=== PATIENT | male | born 1960 | race Caucasian/White ===

== ENCOUNTER 2017-07-05 00:36 | Emergency (ER) | payer OTHER ==
[~2017-07-05] VITALS: Ht 179.1 cm; Wt 68.9 kg
[~2017-07-05 00:36] MED LIST: DILT120C62 PO; FURO-150 PO; NO HOME MEDS
[2017-07-05 01:11] LABS: BASOPHILS # (AUTO) 0.1 X10'3 (0-0.2); BASOPHILS % (AUTO) 1.6 % (0-1); EOSINOPHILS # (AUTO) 0.1 X10'3 (0-0.9); EOSINOPHILS % (AUTO) 0.9 % (0-6); HEMATOCRIT 47.4 % (42.0-52.0); HEMOGLOBIN 16.6 g/dl (14.0-17.9); LYMPHOCYTES # (AUTO) 1.6 X10'3 (1.1-4.8); LYMPHOCYTES % (AUTO) 17.7 % (21-51); MEAN CORPUSCULAR HEMOGLOBIN 32.3 PG (27.0-31.0); MEAN CORPUSCULAR HGB CONC 35.1 % (33.0-36.5); MEAN PLATELET VOLUME 10.1 FL (7.4-10.4); MONOCYTES # (AUTO) 0.4 X10'3 (0-0.9); MONOCYTES % (AUTO) 4.9 % (2-12); NEUTROPHILS # (AUTO) 6.7 X10'3 (1.8-7.7); NEUTROPHILS % (AUTO) 74.9 % (42-75); PLATELET COUNT 134 X10'3 (140-440); RED BLOOD COUNT 5.15 X10'6 (4.70-6.10); RED CELL DISTRIBUTION WIDTH 13.1 % (11.5-14.5); WHITE BLOOD COUNT 8.9 X10'3 (4.5-11.0)
[2017-07-05] MEDS ORDERED: diltiazem 5mg/ml 5ml inj. IV ONE (01:20)
[2017-07-05 01:22] LABS: INR 1.1 INR; PARTIAL THROMBOPLASTIN TIME 28 SECONDS (22-32); PROTHROMBIN TIME 11.3 SECONDS (9.0-12.0)
[2017-07-05 01:25] LABS: ALANINE AMINOTRANSFERASE 28 U/L (12-78); ALBUMIN 4.3 G/DL (3.4-5.0); ALBUMIN/GLOBULIN RATIO 1.2 (1.1-1.5); ALKALINE PHOSPHATASE 99 IU/L (46-116); ANION GAP 11 (8-16); ASPARTATE AMINO TRANSFERASE 24 U/L (10-37); BILIRUBIN,TOTAL 1.5 MG/DL (0.1-1.0); BLOOD UREA NITROGEN 15 MG/DL (7-18); CALCIUM 9.7 MG/DL (8.5-10.1); CHLORIDE 101 MMOL/L (99-107); GLUCOSE 115 MG/DL (70-104); POTASSIUM 4.5 MMOL/L (3.5-5.1); SODIUM 138 MMOL/L (135-145); TOTAL CARBON DIOXIDE 26.2 MMOL/L (24-32); TOTAL PROTEIN 7.9 G/DL (6.4-8.2); eGFR 77 ML/MIN
[2017-07-05 02:59] VITALS: BP 146/96
== END 2017-07-05 03:02 | disposition home or self-care (01) ==
LOC: ER 00:36
DX: I48.91 Unspecified atrial fibrillation (principal); R06.02 Shortness of breath; F15.10 Other stimulant abuse, uncomplicated; F17.200 Nicotine dependence, unspecified, uncomplicated; Z86.79 Personal history of other diseases of the circulatory system; Z79.899 Other long term (current) drug therapy; Z90.49 Acquired absence of other specified parts of digestive tract; Z60.2 Problems related to living alone
CPT/HCPCS: 36415; 71045; 80053; 84484; 85025; 85610; 85730; 93005; 96374; 99285; J3490

== ENCOUNTER 2018-05-08 13:29 | Day surgery (SDC) | payer OTHER ==
[2018-04-29 13:00] LABS: BASOPHILS # (AUTO) 0.1 X10'3 (0-0.2); BASOPHILS % (AUTO) 0.6 % (0-1); EOSINOPHILS # (AUTO) 0.2 X10'3 (0-0.9); EOSINOPHILS % (AUTO) 2.2 % (0-6); HEMATOCRIT 51.1 % (42.0-52.0); HEMOGLOBIN 17.4 g/dl (14.0-17.9); LYMPHOCYTES % (AUTO) 22.4 % (21-51); MEAN CORPUSCULAR HEMOGLOBIN 32.3 PG (27.0-31.0); MEAN CORPUSCULAR HGB CONC 34.1 % (33.0-36.5); MEAN CORPUSCULAR VOLUME 94.6 FL (78-98); MEAN PLATELET VOLUME 9.8 FL (7.4-10.4); MONOCYTES # (AUTO) 0.4 X10'3 (0-0.9); MONOCYTES % (AUTO) 4.7 % (2-12); NEUTROPHILS # (AUTO) 6.2 X10'3 (1.8-7.7); NEUTROPHILS % (AUTO) 70.1 % (42-75); PLATELET COUNT 170 X10'3 (140-440); RED CELL DISTRIBUTION WIDTH 13.8 % (11.5-14.5); WHITE BLOOD COUNT 8.9 X10'3 (4.5-11.0)
[2018-04-29 13:13] LABS: ALBUMIN 3.9 G/DL (3.4-5.0); ANION GAP 7 (8-16); BLOOD UREA NITROGEN 10 MG/DL (7-18); CALCIUM 9.5 MG/DL (8.5-10.1); CHLORIDE 101 MMOL/L (99-107); CREATININE 1.11 MG/DL (0.60-1.10); GLUCOSE 112 MG/DL (70-104); POTASSIUM 4.3 MMOL/L (3.5-5.1); SODIUM 137 MMOL/L (135-145); TOTAL CARBON DIOXIDE 28.8 MMOL/L (24-32); eGFR 68 ML/MIN
[2018-04-29 13:23] LABS: INR 1.3 INR; PARTIAL THROMBOPLASTIN TIME 56 SECONDS (22-32); PROTHROMBIN TIME 13.3 SECONDS (9.0-12.0)
[2018-05-08] VITALS (12 sets, daily range): BP systolic 106–125; BP diastolic 53–88
[~2018-05-08] VITALS: Ht 177.8 cm; Wt 67.7 kg
[2018-05-08] MEDS ORDERED: fentaNYL/PF 50MCG/1 ML 2ML syringe IV ONE (14:10)
[2018-05-08] MEDS ORDERED: normal saline 1000ml 1,000 ML IV SCH (14:10)
[2018-05-08] MEDS ORDERED: MIDAZolam 5mg/ml 2ml vial IV ONE (14:10)
[2018-05-08] MEDS ORDERED: ACET-2119 PO (14:25)
[2018-05-08] MEDS ORDERED: POTA-82 PO (14:25)
[2018-05-08] MEDS ORDERED: DABI150C PO (14:25)
[2018-05-08] MEDS ORDERED: FURO-150 PO (14:35)
[2018-05-08] MEDS ORDERED: DILT240T12 PO (14:35)
== END 2018-05-08 19:10 | disposition home or self-care (01) ==
LOC: SSTAY O 13:29
PROVIDERS: ATTEND Internal Medicine Interventional Cardiology
DX: I48.1 Persistent atrial fibrillation (principal); I34.0 Nonrheumatic mitral (valve) insufficiency; F17.210 Nicotine dependence, cigarettes, uncomplicated; I11.0 Hypertensive heart disease with heart failure; I50.22 Chronic systolic (congestive) heart failure; G62.89 Other specified polyneuropathies; Z79.891 Long term (current) use of opiate analgesic; Z86.79 Personal history of other diseases of the circulatory system; Z86.69 Personal history of other diseases of the nervous system and sense organs; Z90.49 Acquired absence of other specified parts of digestive tract; Z87.2 Personal history of diseases of the skin and subcutaneous tissue; Z79.899 Other long term (current) drug therapy; Z80.9 Family history of malignant neoplasm, unspecified
CPT/HCPCS: 36415; 80048; 85025; 85610; 85730; 92960; 93312; J2250; J3010; J7030; 93005

== ENCOUNTER 2019-04-30 12:44 | Emergency (ER) | payer OTHER ==
[~2019-04-30] VITALS: Ht 179.1 cm; Wt 64.6 kg
[~2019-04-30 12:44] MED LIST changes: +ACET-2119 PO; +DABI150C PO; -DILT120C62 PO; +DILT240T12 PO; -NO HOME MEDS; +POTA-82 PO
[2019-04-30 13:11] LABS: BASOPHILS # (AUTO) 0.1 X10'3 (0-0.2); BASOPHILS % (AUTO) 0.5 % (0-1); EOSINOPHILS % (AUTO) 0.2 % (0-6); HEMATOCRIT 51.4 % (42.0-52.0); HEMOGLOBIN 17.8 g/dl (14.0-17.9); LYMPHOCYTES # (AUTO) 1.9 X10'3 (1.1-4.8); LYMPHOCYTES % (AUTO) 12.8 % (21-51); MEAN CORPUSCULAR HEMOGLOBIN 32.1 PG (27.0-31.0); MEAN CORPUSCULAR HGB CONC 34.7 g/dL (33.0-36.5); MEAN CORPUSCULAR VOLUME 92.6 FL (78-98); MEAN PLATELET VOLUME 10.1 FL (7.4-10.4); MONOCYTES # (AUTO) 0.8 X10'3 (0-0.9); MONOCYTES % (AUTO) 5.7 % (2-12); NEUTROPHILS # (AUTO) 11.8 X10'3 (1.8-7.7); NEUTROPHILS % (AUTO) 80.8 % (42-75); PLATELET COUNT 202 X10'3 (140-440); RED BLOOD COUNT 5.55 X10'6 (4.70-6.10); RED CELL DISTRIBUTION WIDTH 13.6 % (11.5-14.5); WHITE BLOOD COUNT 14.6 X10'3 (4.5-11.0)
[2019-04-30 13:30] LABS: ALANINE AMINOTRANSFERASE 17 U/L (12-78); ALBUMIN 3.9 G/DL (3.4-5.0); ANION GAP 12 (8-16); ASPARTATE AMINO TRANSFERASE 20 U/L (10-37); BILIRUBIN,TOTAL 0.7 MG/DL (0.1-1.0); BLOOD UREA NITROGEN 14 MG/DL (7-18); CALCIUM 9.2 MG/DL (8.5-10.1); CHLORIDE 103 MMOL/L (99-107); CREATININE 1.17 MG/DL (0.60-1.10); GLUCOSE 122 MG/DL (70-104); POTASSIUM 4.4 MMOL/L (3.5-5.1); SODIUM 140 MMOL/L (135-145); TOTAL PROTEIN 7.8 G/DL (6.4-8.2); eGFR 64 ML/MIN
[2019-04-30] MEDS ORDERED: normal saline 1000ml 1,000 ML IV ONE (13:30)
[2019-04-30] MEDS ORDERED: diltiazem 5mg/ml 5ml inj. IV ONE (13:30)
[2019-04-30 13:31] LABS: ALKALINE PHOSPHATASE 105 IU/L (46-116)
[2019-04-30 13:33] LABS: AMYLASE 38 U/L (25-115); LIPASE 63 U/L (73-393); MAGNESIUM 1.8 MG/DL (1.5-2.4)
[2019-04-30] MEDS ORDERED: morphine 4 MG/ML inj SYRINge IV ONE (13:35)
[2019-04-30] MEDS ORDERED: ondansetron/PF 4mg/2ml inj IV ONE (13:35)
--- NOTE | 2019-04-30 14:32 | NUR ---
To CT scan.
[2019-04-30 14:47] LABS: CLARITY,URINE CLEAR (Clear); GLUCOSE, URINE NEGATIVE (Neg); KETONES,URINE 40 mg/dl (Neg); LEUKOCYTE ESTERASE ,URINE NEGATIVE (Neg); NITRITES, URINE NEGATIVE (Neg); OCCULT BLOOD,URINE TRACE-LYSED (Neg); PH,URINE 5.5 (4.8-8.0); PROTEIN,URINE 30 mg/dl (Neg); UROBILINOGEN,URINE 0.2 E.U/dL (0.2-1.0)
[2019-04-30 14:53] LABS: URINE AMPHETAMINE SCREEN NEGATIVE (Neg); URINE BARBITUATE SCREEN NEGATIVE (Neg); URINE BENZODIAZEPINES SCREEN NEGATIVE (Neg); URINE CANNABINOID SCREEN POSITIVE (Neg); URINE COCAINE SCREEN NEGATIVE (Neg); URINE METHADONE SCREEN NEGATIVE (Neg); URINE OPIATE SCREEN POSITIVE (Neg); URINE PHENCYCLIDINE SCREEN NEGATIVE (Neg)
--- NOTE | 2019-04-30 14:55 | NUR ---
BACK FROM CT
[2019-04-30 15:07] LABS: UA COLLECTION TYPE VOIDED
[2019-04-30 15:12] LABS: COLOR,URINE DARK YELLOW (Yellow)
[2019-04-30 15:20] LABS: MUCUS STRANDS FEW /LPF (Neg); SQUAMOUS EPITHELIAL CELL,UR FEW /LPF (FEW)
[2019-04-30 15:26] LABS: WBC,URINE 0-4 /HPF (0-4)
[2019-04-30 15:28] LABS: BACTERIA,URINE NONE SEEN /HPF (Neg)
[2019-04-30 15:30] LABS: RBC,URINE NONE SEEN /HPF (0-2)
[2019-04-30] MEDS ORDERED: PANT-47 PO (16:32)
[2019-04-30 17:05] VITALS: BP 155/92
== END 2019-04-30 17:12 | disposition home or self-care (01) ==
LOC: ER 12:45
DX: R10.13 Epigastric pain (principal); F12.90 Cannabis use, unspecified, uncomplicated; I48.91 Unspecified atrial fibrillation; F15.90 Other stimulant use, unspecified, uncomplicated; Z90.49 Acquired absence of other specified parts of digestive tract; Z60.2 Problems related to living alone; Z79.899 Other long term (current) drug therapy
CPT/HCPCS: 36415; 74176; 80053; 80305; 81001; 82150; 83690; 83735; 83880; 84484; 85025; 93005; 96374; 96375; 99284; J2270; J2405; J7030; J3490

== ENCOUNTER 2019-07-28 12:19 | Inpatient (IN) | payer OTHER ==
[~2019-07-28] VITALS: Ht 179.1 cm; Wt 68.5 kg
[2019-07-28] VITALS (8 sets, daily range): BP systolic 123–169; BP diastolic 85–111
[~2019-07-28 12:19] MED LIST changes: +ASPI-1265 PO; -DILT240T12 PO; -FURO-150 PO; +FURO20TA4 PO; +HYDR-4353 PO; +LISI10TA4 PO; +NICO-687 TD; +OMEP20TA23 PO; -POTA-82 PO
[2019-07-28] MEDS ORDERED: gentamicin 0.1% topical ointment 15gm TP SCH (15:15)
[2019-07-28] MEDS ORDERED: LIDOcaine 4% (40 mg/ml) topical solution 50ml TP ONE (15:15)
[2019-07-28] MEDS ORDERED: diltiazem SR 60mg capsule (twice daily) PO SCH (15:20)
[2019-07-28] MEDS ORDERED: diltiazem SR 60mg capsule (twice daily) PO ONE (15:20)
--- NOTE | 2019-07-28 15:54 | NUR ---
PT WANTING TO WAIT ON TAKING HER ORDERED CARDIZEM UNTIL SHE SPEAKS TO DR ENG
--- NOTE | 2019-07-28 16:01 | NUR ---
DR. GUSMAN AT BEDSIDE CLEANING WOUND
[2019-07-28] MEDS ORDERED: diltiazem 5mg/ml 5ml inj. IV ONE ×2 (16:15→17:05)
[2019-07-28 16:42] LABS: BASOPHILS # (AUTO) 0.1 X10'3 (0-0.2); EOSINOPHILS % (AUTO) 0.4 % (0-6); HEMATOCRIT 29.5 % (42.0-52.0); HEMOGLOBIN 10.3 g/dl (14.0-17.9); LYMPHOCYTES % (AUTO) 10.3 % (21-51); MEAN CORPUSCULAR HEMOGLOBIN 32.3 PG (27.0-31.0); MEAN CORPUSCULAR HGB CONC 34.9 g/dL (33.0-36.5); MEAN CORPUSCULAR VOLUME 92.3 FL (78-98); MEAN PLATELET VOLUME 8.8 FL (7.4-10.4); MONOCYTES % (AUTO) 10.1 % (2-12); NEUTROPHILS # (AUTO) 7.6 X10'3 (1.8-7.7); NEUTROPHILS % (AUTO) 78.2 % (42-75); PLATELET COUNT 297 X10'3 (140-440); RED BLOOD COUNT 3.19 X10'6 (4.70-6.10); RED CELL DISTRIBUTION WIDTH 17.7 % (11.5-14.5); WHITE BLOOD COUNT 9.8 X10'3 (4.5-11.0)
[2019-07-28 16:52] LABS: ALANINE AMINOTRANSFERASE 24 U/L (12-78); ALBUMIN 2.9 G/DL (3.4-5.0); ALBUMIN/GLOBULIN RATIO 0.9 (1.1-1.5); ALKALINE PHOSPHATASE 108 IU/L (46-116); ANION GAP 11 (8-16); ASPARTATE AMINO TRANSFERASE 24 U/L (10-37); BILIRUBIN,TOTAL 1.5 MG/DL (0.1-1.0); BLOOD UREA NITROGEN 16 MG/DL (7-18); BUN/CREATININE RATIO 20.5 (5.4-32.0); CHLORIDE 105 MMOL/L (99-107); CREATININE 0.78 MG/DL (0.60-1.10); GLUCOSE 105 MG/DL (70-104); POTASSIUM 3.3 MMOL/L (3.5-5.1); SODIUM 141 MMOL/L (135-145); TOTAL CARBON DIOXIDE 25.3 MMOL/L (24-32); TOTAL PROTEIN 6.2 G/DL (6.4-8.2); eGFR > 90 ML/MIN
[2019-07-28] MEDS ORDERED: ASPI-1130 PO (17:39)
[2019-07-28] MEDS ORDERED: magnesium 4gm in 100ml NS 100 ML IV PRN (17:55)
[2019-07-28] MEDS ORDERED: NICO-687 TOP (17:55)
[2019-07-28] MEDS ORDERED: magnesium 2GM in 50ml NS 50 ML IV PRN (17:55)
[2019-07-28] MEDS ORDERED: mag hydrox/Alum hydrox/simeth 30ml oral suspension PO PRN (17:55)
[2019-07-28] MEDS ORDERED: diltiazem-NS 100mg/100ml 100 ML IV SCH (17:55)
[2019-07-28] MEDS ORDERED: magnesium hydroxide 30ml (MOM) UD suspension PO PRN (17:55)
[2019-07-28] MEDS ORDERED: ondansetron/PF 4mg/2ml inj IV PRN (17:55)
[2019-07-28] MEDS ORDERED: potassium CL 10mEq/100ml bag 100 ML IV PRN ×2 (17:55)
[2019-07-28] MEDS ORDERED: ipratropium/albuterol 3ml nebule NEB PRN (17:55)
[2019-07-28] MEDS ORDERED: acetaminophen 325mg tablet PO PRN (17:55)
[2019-07-28] MEDS ORDERED: potassium Cl 20 mEq SR tablet PO PRN (17:55)
[2019-07-28 18:51] LABS: ABG BASE EXCESS -1.3 mmol/L (-2.0-3.0); ABG HCO3 20.6 mmol/L (22.0-26.0); ABG OXYGEN SATURATION 78.4 % (95-98); ABG PCO2 (T) 26.2 mmHg (35.0-45.0); ABG PH (T) 7.513 (7.350-7.450); ABG PO2 (T) 41.4 mmHg (83-108); ALLEN'S TEST POSITIVE; FCOHb 1.9 % (0.5-1.5); FLOW 3 L/min; FMetHb 0.1 % (0.3-1.12); FO2Hb 76.8 % (94-100)
[2019-07-28] MEDS ORDERED: LORazepam 1 MG tablet PO PRN (18:55)
[2019-07-28] MEDS: potassium Cl 20 mEq SR tablet PO PRN (19:10)
[2019-07-28] MEDS: K and/or MAG REPLACEMENT MC SCH (20:00)
--- NOTE | 2019-07-28 20:30 | NUR ---
I have received report from RASHEEDA Anton and had the opportunity to ask questions and assume patient care. Report as follows: Patient came in with a.fib RVR and a graft site dehisced wound. pt has a hx of CABG x4 on 06/20/2019. O2 sat when pt arrived to ED was 70-80% on room air, currently on 3L sating at 94-95%. needs home O2. ABGs were taken. Cardizem drip at 10mg/hr. chest xray shows small left pleural effusion. IV 20G Right AC. pBNP 3402, K+ 3.3. Heart healthy diet.
[2019-07-28] MEDS: furosemide 40mg/4ml inj IV SCH (20:46)
--- NOTE | 2019-07-28 20:50 | NUR ---
PATIENT SATS 80% ON 6L, RT PAGED.
[2019-07-28] MEDS: dabigatran 150mg capsule PO SCH (20:55)
--- NOTE | 2019-07-28 21:05 | NUR ---
MD Notified Patients sustaining A. fib rate in 130s to 140s. BP 150/98, RR 25, O2 sating 94% on 12 L Salter Nasal canula, coarse lung sounds throughout. 40mg IV lasix given. Cardizem drip going at 10mg/hr. Received orders to increase drip to 15mg/hr.
[2019-07-28] MEDS: methylPREDNISolone sod succ/PF 40mg inj. IV SCH (23:37)
[2019-07-29] VITALS (14 sets, daily range): BP systolic 101–123; BP diastolic 67–89
[2019-07-29] MEDS: potassium Cl 20 mEq SR tablet PO PRN ×2 (00:49→08:06)
[2019-07-29] MEDS ORDERED: furosemide 40mg/4ml inj IV ONE (01:00)
--- NOTE | 2019-07-29 01:00 | NUR ---
MD Notified Patient O2 sat 88 to 90% 13L Salter Nasal Canula. Still has coarse lung sounds throughout. received orders for 40mg lasix IV once.
[2019-07-29] MEDS: diltiazem-NS 100mg/100ml 100 ML IV SCH ×3 (01:08→17:45)
[2019-07-29 04:34] LABS: BASOPHILS # (AUTO) 0.1 X10'3 (0-0.2); BASOPHILS % (AUTO) 0.7 % (0-1); EOSINOPHILS % (AUTO) 0 % (0-6); HEMATOCRIT 30.8 % (42.0-52.0); HEMOGLOBIN 10.5 g/dl (14.0-17.9); LYMPHOCYTES # (AUTO) 0.3 X10'3 (1.1-4.8); LYMPHOCYTES % (AUTO) 1.9 % (21-51); MEAN CORPUSCULAR HEMOGLOBIN 30.9 PG (27.0-31.0); MEAN CORPUSCULAR VOLUME 90.9 FL (78-98); MEAN PLATELET VOLUME 9.3 FL (7.4-10.4); MONOCYTES # (AUTO) 0.2 X10'3 (0-0.9); MONOCYTES % (AUTO) 1.8 % (2-12); NEUTROPHILS % (AUTO) 95.6 % (42-75); PLATELET COUNT 301 X10'3 (140-440); RED BLOOD COUNT 3.39 X10'6 (4.70-6.10); RED CELL DISTRIBUTION WIDTH 17.2 % (11.5-14.5); WHITE BLOOD COUNT 13.6 X10'3 (4.5-11.0)
[2019-07-29 04:53] LABS: ALANINE AMINOTRANSFERASE 25 U/L (12-78); ALBUMIN/GLOBULIN RATIO 0.9 (1.1-1.5); ALKALINE PHOSPHATASE 113 IU/L (46-116); ANION GAP 8 (8-16); ASPARTATE AMINO TRANSFERASE 27 U/L (10-37); BILIRUBIN,TOTAL 1.9 MG/DL (0.1-1.0); BLOOD UREA NITROGEN 17 MG/DL (7-18); BUN/CREATININE RATIO 18.5 (5.4-32.0); CALCIUM 8.8 MG/DL (8.5-10.1); CHLORIDE 102 MMOL/L (99-107); CREATININE 0.92 MG/DL (0.60-1.10); GLUCOSE 145 MG/DL (70-104); MAGNESIUM 1.6 MG/DL (1.5-2.4); POTASSIUM 3.7 MMOL/L (3.5-5.1); SODIUM 137 MMOL/L (135-145); TOTAL CARBON DIOXIDE 26.9 MMOL/L (24-32); TOTAL PROTEIN 6.5 G/DL (6.4-8.2); eGFR 84 ML/MIN
--- NOTE | 2019-07-29 06:10 | NUR ---
Patient in room MED 308. I have received report from RASHEEDA Jansen and had the opportunity to ask questions and assume patient care.
--- NOTE | 2019-07-29 06:11 | NUR ---
Problems reprioritized. Patient report given, questions answered & plan of care reviewed with RASHEEDA Lu.
[2019-07-29] MEDS: furosemide 40mg/4ml inj IV SCH ×2 (07:58→21:02)
[2019-07-29] MEDS: K and/or MAG REPLACEMENT MC SCH ×2 (08:00→20:00)
[2019-07-29] MEDS: methylPREDNISolone sod succ/PF 40mg inj. IV SCH ×3 (08:00→23:57)
[2019-07-29] MEDS: dabigatran 150mg capsule PO SCH (08:02)
[2019-07-29] MEDS: aspirin 81mg tablet.DR PO SCH (08:02)
[2019-07-29] MEDS: nicotine 21mg patch - 24 hr TD SCH (08:04)
[2019-07-29 09:15] LABS: D-DIMER 2.29 MG/L FEU (0-0.50)
--- NOTE | 2019-07-29 09:32 | NUR ---
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 He can not have the skin test since then and must only have an xray.
--- NOTE | 2019-07-29 10:08 | NUR ---
PAGER ID: [phone] MESSAGE: Dr. Friend, FYI patient Gerri Tinsley. in 308 on [facility], D-Dimer came back results: 2.29. any further orders? Thank you, Yuliana Lu [facility] [id number]
[2019-07-29] MEDS ORDERED: iohexol 350MG/ML 100ml bottle IV ONE (11:12)
--- NOTE | 2019-07-29 11:20 | NUR ---
Need RT to accompany pt Gerri Tinsley. rm 308, On a salter heaading to have a CTA. Please come to [facility]. Radiology ready for patient now. Call [facility] please. Thank you, RASHEEDA Lu
[2019-07-29] MEDS ORDERED: DILT240C94 PO (11:21)
[2019-07-29] MEDS ORDERED: ATOR20TA66 PO (11:21)
--- NOTE | 2019-07-29 12:03 | NUR ---
STAT orders place by Dr. Friend this am for pt in 308 on [address]. Please call [facility]. Thank you, Yuliana Lu RN
--- NOTE | 2019-07-29 12:17 | NUR ---
STAT orders place by Dr. Friend this am for pt in 308 on [address]. Please call [facility]. Thank you, Yuliana Lu RN
[2019-07-29 12:46] LABS: ABG BASE EXCESS -0.4 mmol/L (-2.0-3.0); ABG HCO3 21.6 mmol/L (22.0-26.0); ABG OXYGEN SATURATION 91.4 % (95-98); ABG PO2 (T) 63.1 mmHg (83-108); ALLEN'S TEST POSITIVE; FCOHb 0.8 % (0.5-1.5); FLOW 12 L/min; FMetHb 0.3 % (0.3-1.12); FO2Hb 90.4 % (94-100); TOTAL HEMOGLOBIN 10.9 G/dl (14.0-17.9)
[2019-07-29] MEDS ORDERED: digoxin 250mcg/ml 2ml ampule IV ONE ×2 (13:05→19:00)
--- NOTE | 2019-07-29 13:56 | NUR ---
Pt admit w/ COPD exacerbation and mild surgical site dehiscence of 1cm to leg. Pt seen previously prior admit by LALY endorsing good appetite and receiving ensure enlive TIDWM prior admit. Ensure Enlive TIDWM recommended to add to meals; notified. Will continue to monitor. Addendum: 07/29/19 at [address] Amended: Links added.
--- NOTE | 2019-07-29 14:55 | NUR ---
WOUND INFECTION EDUCATION PROVIDED BY WOUND CARE 1. Patient instructed to call their primary doctor, or go the ED immediately if any of the following symptoms occur: * Increased pain in wound * Increase in drainage from the wound * Redness in the skin surrounding the wound * Warmth in the skin surrounding the wound * Bleeding from the wound * Temperature of 101 or greater 2. If any of these occur while in the hospital tell a nurse immediately. Addendum: 07/29/19 at 1505 by J Carlos Butler RN Amended: Links added.
[2019-07-29] MEDS: lactose-reduced food (Ensure Enlive) - 237ml bottle PO SCH (18:00)
--- NOTE | 2019-07-29 18:00 | NUR ---
Student documentation: I have reviewed and agree with interventions, assessments performed and documented by JENNY Joshua. Student Medication Administration: For this medication-pass time frame, medication were reviewed, dispensed, administered and documented per hospital policy by JENNY Boo.
[2019-07-29] MEDS ORDERED: piperacillin/tazo 3.375gm/50ml 50 ML IV SCH (20:00)
[2019-07-29] MEDS: piperacillin/tazo 3.375gm/50ml 50 ML IV SCH (23:57)
[2019-07-30] VITALS (14 sets, daily range): BP systolic 99–124; BP diastolic 58–85
[2019-07-30] MEDS: diltiazem-NS 100mg/100ml 100 ML IV SCH ×2 (00:47→08:17)
[2019-07-30] MEDS ORDERED: digoxin 250mcg/ml 2ml ampule IV ONE (01:00)
--- NOTE | 2019-07-30 06:15 | NUR ---
Patient in room MED 308. I have received report from RASHEEDA Jansen and had the opportunity to ask questions and assume patient care.
--- NOTE | 2019-07-30 06:27 | NUR ---
Problems reprioritized. Patient report given, questions answered & plan of care reviewed with RASHEEDA Lu.
[2019-07-30] MEDS: aspirin 81mg tablet.DR PO SCH (06:35)
--- NOTE | 2019-07-30 07:13 | NUR ---
Patient in room MED 308. I have received report from RASHEEDA Lu and had the opportunity to ask questions and assume patient care.
[2019-07-30 07:53] LABS: BASOPHILS % (AUTO) 0.3 % (0-1); EOSINOPHILS % (AUTO) 0 % (0-6); HEMATOCRIT 27.7 % (42.0-52.0); HEMOGLOBIN 9.4 g/dl (14.0-17.9); LYMPHOCYTES # (AUTO) 0.4 X10'3 (1.1-4.8); LYMPHOCYTES % (AUTO) 2.6 % (21-51); MEAN CORPUSCULAR HEMOGLOBIN 31.2 PG (27.0-31.0); MEAN CORPUSCULAR HGB CONC 33.8 g/dL (33.0-36.5); MEAN CORPUSCULAR VOLUME 92.2 FL (78-98); MONOCYTES # (AUTO) 0.7 X10'3 (0-0.9); MONOCYTES % (AUTO) 3.9 % (2-12); NEUTROPHILS # (AUTO) 16.1 X10'3 (1.8-7.7); NEUTROPHILS % (AUTO) 93.2 % (42-75); PLATELET COUNT 260 X10'3 (140-440); RED CELL DISTRIBUTION WIDTH 16.9 % (11.5-14.5); WHITE BLOOD COUNT 17.2 X10'3 (4.5-11.0)
[2019-07-30] MEDS: lactose-reduced food (Ensure Enlive) - 237ml bottle PO SCH ×2 (08:00→13:00)
[2019-07-30 08:10] LABS: ALANINE AMINOTRANSFERASE 22 U/L (12-78); ALBUMIN 2.7 G/DL (3.4-5.0); ALBUMIN/GLOBULIN RATIO 0.8 (1.1-1.5); ALKALINE PHOSPHATASE 92 IU/L (46-116); ANION GAP 8 (8-16); ASPARTATE AMINO TRANSFERASE 21 U/L (10-37); BLOOD UREA NITROGEN 26 MG/DL (7-18); BUN/CREATININE RATIO 28.9 (5.4-32.0); CALCIUM 8.7 MG/DL (8.5-10.1); CHLORIDE 102 MMOL/L (99-107); GLUCOSE 145 MG/DL (70-104); POTASSIUM 3.9 MMOL/L (3.5-5.1); SODIUM 138 MMOL/L (135-145); TOTAL CARBON DIOXIDE 27.7 MMOL/L (24-32); eGFR 86 ML/MIN
[2019-07-30 08:15] LABS: MAGNESIUM 1.8 MG/DL (1.5-2.4)
[2019-07-30] MEDS: piperacillin/tazo 3.375gm/50ml 50 ML IV SCH ×2 (08:22→16:49)
[2019-07-30] MEDS: methylPREDNISolone sod succ/PF 40mg inj. IV SCH ×3 (08:26→19:21)
[2019-07-30] MEDS: furosemide 40mg/4ml inj IV SCH ×2 (08:26→19:22)
[2019-07-30] MEDS: nicotine 21mg patch - 24 hr TD SCH (08:27)
[2019-07-30] MEDS: digoxin 250mcg (0.25mg) tablet PO SCH (08:38)
[2019-07-30] MEDS: K and/or MAG REPLACEMENT MC SCH ×2 (08:46→19:33)
--- NOTE | 2019-07-30 10:14 | NUR ---
Student documentation: I have reviewed and agree with interventions, assessments performed and documented by Kolton Reynolds SRN. Student Medication Administration: For this medication-pass time frame, medication were reviewed, dispensed, administered and documented per hospital policy by Richie Reynolds.
[2019-07-30] MEDS ORDERED: diltiazem 30mg tablet PO SCH ×2 (12:00→20:00)
--- NOTE | 2019-07-30 12:16 | NUR ---
Problems reprioritized. Patient report given, questions answered & plan of care reviewed with RASHEEDA Lu.
[2019-07-30 12:35] LABS: BFSOURCE LEFT PLEURAL FLD; PLEURAL FLUID PH 7.529 (7.63-7.65)
[2019-07-30 13:05] LABS: LDH,BODY FLUID 140 U/L
[2019-07-30 13:10] LABS: LYMPHOCYTES,BODY FLUID 49 %; MONOCYTES,BODY FLUID 3 %; NEUTROPHILS,BODY FLUID 48 %
[2019-07-30 13:11] LABS: BF MESOTHELIAL CELLS FEW; BF RBC COUNT 11800 /CU MM; BF WBC COUNT 1100 /CU MM (0-1000); BFAPPEAR CLOUDY; BFCOLOR RED; BFVOLUME 50 ML
--- NOTE | 2019-07-30 18:15 | NUR ---
Problems reprioritized. Patient report given, questions answered & plan of care reviewed with RASHEEDA De Santiago.
[2019-07-30] MEDS: diltiazem 30mg tablet PO SCH (19:20)
[2019-07-30] MEDS: lactobacillus rhamnosus 10,000 MMU CELLS/CAPSULE PO SCH (19:21)
[2019-07-31] MEDS: piperacillin/tazo 3.375gm/50ml 50 ML IV SCH ×3 (00:40→16:24)
[2019-07-31] MEDS: diltiazem 30mg tablet PO SCH ×2 (00:40→08:22)
[2019-07-31 01:24] LABS: BASOPHILS % (AUTO) 0.2 % (0-1); EOSINOPHILS % (AUTO) 0 % (0-6); HEMATOCRIT 28.4 % (42.0-52.0); HEMOGLOBIN 9.9 g/dl (14.0-17.9); LYMPHOCYTES # (AUTO) 0.4 X10'3 (1.1-4.8); LYMPHOCYTES % (AUTO) 2.5 % (21-51); MEAN CORPUSCULAR HEMOGLOBIN 31.6 PG (27.0-31.0); MEAN CORPUSCULAR HGB CONC 34.8 g/dL (33.0-36.5); MEAN CORPUSCULAR VOLUME 90.7 FL (78-98); MEAN PLATELET VOLUME 9.1 FL (7.4-10.4); MONOCYTES # (AUTO) 0.5 X10'3 (0-0.9); MONOCYTES % (AUTO) 2.9 % (2-12); NEUTROPHILS # (AUTO) 16.3 X10'3 (1.8-7.7); NEUTROPHILS % (AUTO) 94.4 % (42-75); PLATELET COUNT 276 X10'3 (140-440); RED BLOOD COUNT 3.13 X10'6 (4.70-6.10); RED CELL DISTRIBUTION WIDTH 16.8 % (11.5-14.5); WHITE BLOOD COUNT 17.3 X10'3 (4.5-11.0)
[2019-07-31 01:37] LABS: ALANINE AMINOTRANSFERASE 22 U/L (12-78); ALBUMIN 2.7 G/DL (3.4-5.0); ALBUMIN/GLOBULIN RATIO 0.8 (1.1-1.5); ALKALINE PHOSPHATASE 92 IU/L (46-116); ANION GAP 7 (8-16); ASPARTATE AMINO TRANSFERASE 20 U/L (10-37); BILIRUBIN,TOTAL 0.8 MG/DL (0.1-1.0); BLOOD UREA NITROGEN 34 MG/DL (7-18); BUN/CREATININE RATIO 36.2 (5.4-32.0); CALCIUM 8.9 MG/DL (8.5-10.1); CHLORIDE 100 MMOL/L (99-107); CREATININE 0.94 MG/DL (0.60-1.10); GLUCOSE 134 MG/DL (70-104); MAGNESIUM 1.9 MG/DL (1.5-2.4); SODIUM 139 MMOL/L (135-145); TOTAL CARBON DIOXIDE 32.2 MMOL/L (24-32); eGFR 82 ML/MIN
[2019-07-31 02:00] VITALS: BP 112/70
[2019-07-31 06:00] VITALS: BP 121/73
--- NOTE | 2019-07-31 06:24 | NUR ---
Problems reprioritized. Patient report given to David, questions answered & plan of care reviewed with .
[2019-07-31] MEDS: K and/or MAG REPLACEMENT MC SCH ×2 (08:00→19:41)
[2019-07-31] MEDS: digoxin 250mcg (0.25mg) tablet PO SCH (08:22)
[2019-07-31] MEDS: diltiazem CD 180mg cap (once-daily) PO SCH (08:22)
[2019-07-31] MEDS: lactobacillus rhamnosus 10,000 MMU CELLS/CAPSULE PO SCH ×2 (08:22→19:37)
[2019-07-31] MEDS: furosemide 40mg/4ml inj IV SCH ×2 (08:23→19:37)
[2019-07-31] MEDS: methylPREDNISolone sod succ/PF 40mg inj. IV SCH ×2 (08:23→16:24)
[2019-07-31] MEDS: aspirin 81mg tablet.DR PO SCH (08:23)
[2019-07-31] MEDS: nicotine 21mg patch - 24 hr TD SCH (08:23)
[2019-07-31] MEDS: dabigatran 150mg capsule PO SCH ×2 (08:25→19:37)
[2019-07-31 10:45] LABS: GLUCOSE,BODY FLUID 163 MG/DL; TOTAL PROTEIN,BODY FLUID < 2.0 G/DL
[2019-07-31 11:00] VITALS: BP 124/68
[2019-07-31 15:00] VITALS: BP 120/65
[2019-07-31 18:00] VITALS: BP 111/71
[2019-07-31 22:00] VITALS: BP 114/72
--- NOTE | 2019-07-31 22:09 | NUR ---
PAGER ID: [phone] MESSAGE: Marta Cruz 58 M with CABG x3 done on 06/20/19 who was on cardizem drip. Now on diltiazem PO is now on A Fib rate controlled, asymptomatic. Had left thoracenthesis on [id number] and took off 1150 cc. Any advice? Abhinav...[id number] Addendum: 07/31/19 at 2222 by Anyi Barbour RN Dr. Valadez called back and saying that she does not need to know about any patient going into A Fib unless I have any question. No orders were given. I told her that I had to call the hospitalist when there is a change in EKG. Addendum: 07/31/19 at 2304 by Anyi Barbour RN Per Hospital protocol I have the obligation to inform the Dr. in case there is any EKG changes. Addendum: 08/01/19 at 0146 by Anyi Barbour RN Sixto Luu is aware of the issue.
[2019-08-01] MEDS: piperacillin/tazo 3.375gm/50ml 50 ML IV SCH ×2 (00:54→09:52)
[2019-08-01] MEDS: methylPREDNISolone sod succ/PF 40mg inj. IV SCH ×3 (00:54→16:00)
[2019-08-01 02:00] VITALS: BP 140/82
[2019-08-01 04:14] LABS: BASOPHILS % (AUTO) 0.1 % (0-1); EOSINOPHILS % (AUTO) 0 % (0-6); HEMATOCRIT 30.5 % (42.0-52.0); HEMOGLOBIN 10.4 g/dl (14.0-17.9); LYMPHOCYTES # (AUTO) 0.5 X10'3 (1.1-4.8); LYMPHOCYTES % (AUTO) 3.2 % (21-51); MEAN CORPUSCULAR HEMOGLOBIN 30.9 PG (27.0-31.0); MEAN CORPUSCULAR VOLUME 90.7 FL (78-98); MEAN PLATELET VOLUME 9.2 FL (7.4-10.4); MONOCYTES # (AUTO) 0.5 X10'3 (0-0.9); MONOCYTES % (AUTO) 3.1 % (2-12); NEUTROPHILS # (AUTO) 14.3 X10'3 (1.8-7.7); NEUTROPHILS % (AUTO) 93.6 % (42-75); PLATELET COUNT 249 X10'3 (140-440); RED BLOOD COUNT 3.36 X10'6 (4.70-6.10); RED CELL DISTRIBUTION WIDTH 16.8 % (11.5-14.5); WHITE BLOOD COUNT 15.3 X10'3 (4.5-11.0)
[2019-08-01 04:44] LABS: ALANINE AMINOTRANSFERASE 27 U/L (12-78); ALBUMIN 2.7 G/DL (3.4-5.0); ALBUMIN/GLOBULIN RATIO 0.8 (1.1-1.5); ALKALINE PHOSPHATASE 89 IU/L (46-116); ANION GAP 6 (8-16); ASPARTATE AMINO TRANSFERASE 24 U/L (10-37); BLOOD UREA NITROGEN 39 MG/DL (7-18); BUN/CREATININE RATIO 39.8 (5.4-32.0); CALCIUM 9.1 MG/DL (8.5-10.1); CHLORIDE 98 MMOL/L (99-107); CREATININE 0.98 MG/DL (0.60-1.10); GLUCOSE 133 MG/DL (70-104); MAGNESIUM 2.2 MG/DL (1.5-2.4); SODIUM 137 MMOL/L (135-145); TOTAL CARBON DIOXIDE 32.7 MMOL/L (24-32); TOTAL PROTEIN 6.1 G/DL (6.4-8.2); eGFR 78 ML/MIN
[2019-08-01 06:00] VITALS: BP 137/83
--- NOTE | 2019-08-01 06:39 | NUR ---
Problems reprioritized. Patient report given Pat-RN, questions answered & plan of care reviewed with .
[2019-08-01] MEDS: dabigatran 150mg capsule PO SCH (08:00)
[2019-08-01] MEDS: K and/or MAG REPLACEMENT MC SCH (08:00)
[2019-08-01] MEDS ORDERED: digoxin 125mcg (0.125mg) tablet PO STA (08:48)
[2019-08-01] MEDS: diltiazem CD 180mg cap (once-daily) PO SCH (09:49)
[2019-08-01] MEDS: aspirin 81mg tablet.DR PO SCH (09:49)
[2019-08-01] MEDS: lactobacillus rhamnosus 10,000 MMU CELLS/CAPSULE PO SCH (09:49)
[2019-08-01] MEDS: digoxin 250mcg (0.25mg) tablet PO SCH (09:50)
[2019-08-01] MEDS: nicotine 21mg patch - 24 hr TD SCH (09:52)
[2019-08-01] MEDS: furosemide 40mg/4ml inj IV SCH (09:53)
[2019-08-01 11:00] VITALS: BP 145/71
--- NOTE | 2019-08-01 12:04 | NUR ---
Initial: Pt admit w/ acute respiratory failure likely combination of COPD, CHF, and anxiety exacerbations per MD note. S/p thoracentesis -1150ml removal and pt feeling significantly improved almost off oxygen per MD note. Pt has mild 1cm surgical wound dehiscence to R leg from prior procedure per MD; skin otherwise intact. Pt PO 100% heart healthy diet w/ ensure enlive TIDWM meeting needs. LBM 07/30. Will continue to monitor. Rec: 1. continue heart healthy diet 2. ensure enlive TIDWM 3. bowel care as needed 4. wt per rx Addendum: 08/01/19 at [address] Amended: Links added.
--- NOTE | 2019-08-01 13:30 | NUR ---
DR. SILVERMAN INTO SEE PATIENT. PATIENT STARTED ON COREG. Addendum: 08/01/19 at 1624 by Mamta Ching RN Amended: Links added.
--- NOTE | 2019-08-01 13:30 | NUR ---
PATIENT UP AMB WITH SBA. DENIES SOB, NAUSEA , AND OR CHEST PAIN; HOWEVER, PATIENT'S HEART RATE INCREASED TO 160, RHYTHM CONTINUES IN ATRIAL FIB. DR. SILVERMAN AWARE; ORDERS NOTED. Addendum: 08/01/19 at 1439 by Mamta Ching RN Amended: Links added.
[2019-08-01] MEDS ORDERED: carvedilol 6.25mg tablet PO STA (13:45)
[2019-08-01 15:00] VITALS: BP 151/90
--- NOTE | 2019-08-01 15:00 | NUR ---
PATIENT UP AMBULATED IN HALLWAY HEART RATE AT 115. Addendum: 08/01/19 at 1624 by Mamta Ching RN Amended: Links added.
--- NOTE | 2019-08-01 15:04 | NUR ---
Dr. Friend paged: PAGER ID: [phone] MESSAGE: 308: Tinsley - rate w/ ambulation up to 115 only :D nurse Montserrat [id number]
--- NOTE | 2019-08-01 15:05 | NUR ---
Dr. Friend called back - stated he will see the patient after his consult in the ER. patient will need new medications for discharge, but more than likely can discharge tonight.
--- NOTE | 2019-08-01 15:36 | NUR ---
CASE MANAGEMENT PAGED: [phone]: LYNDSAY - PATIENT D/C'ING HOME TONIGHT. [facility]POINT[facility]. THEY WILL ALSO NEED TO REFER HIM TO DR. SEAY FOR FOLLOW-UP. TY
[2019-08-01] MEDS ORDERED: DIGO125T PO (16:19)
[2019-08-01] MEDS ORDERED: AMOX-422 PO (16:19)
[2019-08-01] MEDS ORDERED: DILT360C29 PO (16:19)
[2019-08-01] MEDS ORDERED: LAN0.25T PO (16:19)
[2019-08-01] MEDS ORDERED: PRED20TA PO (16:19)
[2019-08-01] MEDS ORDERED: FURO40TA4 PO (16:19)
[2019-08-01] MEDS ORDERED: CARV6.253 PO (16:19)
[2019-08-01] MEDS ORDERED: carvedilol 6.25mg tablet PO SCH (20:00)
== END 2019-08-01 17:59 | disposition home or self-care (01) | DRG 919 ==
LOC: ER 12:20 → ED HOLD 17:54 → MED 3N 20:39 → CMPBEDREQ 20:39
PROVIDERS: ADMIT Family Medicine; ATTEND Family Medicine
PROC: 0W9B3ZZ Drainage of Left Pleural Cavity, Percutaneous Approach (ICD-10-PCS; principal; 2019-07-30)
DX: T81.31XA Disruption of external operation (surgical) wound, not elsewhere classified, initial encounter (principal); J96.01 Acute respiratory failure with hypoxia; J18.9 Pneumonia, unspecified organism; I50.33 Acute on chronic diastolic (congestive) heart failure; J44.0 Chronic obstructive pulmonary disease with (acute) lower respiratory infection; J44.1 Chronic obstructive pulmonary disease with (acute) exacerbation; J91.8 Pleural effusion in other conditions classified elsewhere; I11.0 Hypertensive heart disease with heart failure; I25.10 Atherosclerotic heart disease of native coronary artery without angina pectoris; J44.9 Chronic obstructive pulmonary disease, unspecified; K21.9 Gastro-esophageal reflux disease without esophagitis; Y83.8 Other surgical procedures as the cause of abnormal reaction of the patient, or of later complication, without mention of misadventure at the time of the procedure; I48.91 Unspecified atrial fibrillation; I73.9 Peripheral vascular disease, unspecified; Z90.49 Acquired absence of other specified parts of digestive tract; Z87.891 Personal history of nicotine dependence; Z95.1 Presence of aortocoronary bypass graft; Z95.2 Presence of prosthetic heart valve; Y92.89 Other specified places as the place of occurrence of the external cause; Z79.899 Other long term (current) drug therapy
CPT/HCPCS: 32555; 36415; 36600; 71045; 71046; 71275; 80053; 80162; 82803; 82945; 83605; 83615; 83735; 83880; 83986; 84157; 84484; 85018; 85025; 85379; 85610; 87040; 87070; 87075; 87081; 89051; 93005; 93308; 94760; 96374; 96376; 97116; 97161; 97530; 99285; G0378; J1160; J1940; J2543; J2920; J3490; Q9967

== ENCOUNTER 2019-08-09 08:09 | Emergency (ER) | payer OTHER ==
[~2019-08-09] VITALS: Ht 180.3 cm; Wt 61.0 kg
[~2019-08-09 08:09] MED LIST changes: -ACET-2119 PO; +AMOX-422 PO; +ASPI-1130 PO; -ASPI-1265 PO; +ATOR20TA66 PO; +CARV6.253 PO; +DIGO125T PO; +DILT360C29 PO; -FURO20TA4 PO; +FURO40TA4 PO; -HYDR-4353 PO; +LAN0.25T PO; -LISI10TA4 PO; -NICO-687 TD; +NICO-687 TOP; -OMEP20TA23 PO; +PRED20TA PO
[2019-08-09 11:13] VITALS: BP 120/64
== END 2019-08-09 11:15 | disposition home or self-care (01) ==
LOC: ER 08:10
DX: I97.191 Other postprocedural cardiac functional disturbances following other surgery (principal); I48.91 Unspecified atrial fibrillation; I25.10 Atherosclerotic heart disease of native coronary artery without angina pectoris; I25.2 Old myocardial infarction; F12.90 Cannabis use, unspecified, uncomplicated; F15.90 Other stimulant use, unspecified, uncomplicated; Z95.1 Presence of aortocoronary bypass graft; Z90.49 Acquired absence of other specified parts of digestive tract; Z79.899 Other long term (current) drug therapy; Z79.82 Long term (current) use of aspirin
CPT/HCPCS: 87070; 87077; 87186; 99283